=== PATIENT | female | born 1980 | race Caucasian/White ===

== ENCOUNTER → 2018-12-01 | Emergency (ER) | payer MEDICAID ==
[~2018-12-01] VITALS: Ht 167.6 cm; Wt 60.0 kg
[~2018-12-01] MED LIST: ACETAMINOPHEN 500 MG TAB PO STA; ALBU18HF INHALATION; ALBUTEROL 0.083% (NEB) 2.5 MG/3 ML AMP HHN STA; CETI10TA19 PO; CYCLOBENZAPRINE 10 MG TAB PO ONE; GUAI118L22 PO; IPRATROPIUM (NEB) 0.5 MG/2.5 ML AMP HHN ONE; KETOROLAC 60 MG INJ IM STA
[2018-12-01 14:45] VITALS: Ht 167.6 cm; Wt 60.0 kg
--- NOTE | 2018-12-01 18:11 | ERD ---
ER Documentation Chief Complaint Chief Complaint Complains of back pain x 3 days HPI History of Present Illness: 38-year-old female with no past medical history coming in today with complaint of upper back pain for 3 days. Patient is also reporting chills, fever, productive cough with green mucus, shortness of breath at night while laying. Patient denies any other associated symptoms. Patient denies chest pain, palpitations, dizziness, syncope, weakness. At home pharmacological/nonpharmacological treatment for symptoms: Denies social concerns; Denies recent foreign travel ROS All systems reviewed and are negative except as per history of present illness. Medications Home Meds Active Scripts Albuterol Sulfate* (Ventolin HFA*) 18 Gm Hfa.aer.ad, 2 PUFF INHALATION Q4H, #1 INHALER Prov:NNAMDI HARRIS NP 12/01/18 Cetirizine Hcl* (Cetirizine Hcl*) 10 Mg Tablet, 10 MG PO DAILY for allergies/runny nose/cough, #30 TAB Prov:NNAMDI HARRIS NP 12/01/18 Guaifenesin/Codeine Phosphate (CHERATUSSIN AC SYRUP) 118 Ml Liquid, 10 ML PO Q6H PRN for cough/congestion/phylm, #118 ML Prov:NNAMDI HARRIS NP 12/01/18 Allergies Allergies: Coded Allergies: No Known Allergy (Unverified , 12/01/18) PMhx/Soc History of Surgery: No Anesthesia Reaction: No Hx Neurological Disorder: No Hx Respiratory Disorders: No Hx Cardiac Disorders: No Hx Psychiatric Problems: No Hx Miscellaneous Medical Probl: No Hx Alcohol Use: Yes (sometimes) Hx Substance Use: No Hx Tobacco Use: No Smoking Status: Never smoker FmHx Family History: diabetes Physical Exam Vitals Vital Signs Date Temp Pulse Resp B/P (MAP) Pulse Ox O2 O2 Flow FiO2 Time Delivery Rate 12/01/18 98.1 99 20 125/70 98 Room Air 20:03 (88) 12/01/18 80 19 96 21 17:54 12/01/18 98.4 106 20 138/74 98 14:45 (95) Physical Exam Const: No acute distress Head: Atraumatic Eyes: Normal Conjunctiva ENT: Normal External Ears, Nose and Mouth. Neck: Full range of motion. No meningismus. Resp: Course breath sounds to auscultation bilaterally, shallow breathing. Cardio: Regular rate and rhythm, no murmurs Abd: Soft, non tender, non distended. Normal bowel sounds Skin: No petechiae or rashes Back: No midline or flank tenderness Ext: No cyanosis, or edema Neur: Awake and alert Psych: Normal Mood and Affect Results 24 hrs Laboratory Tests Test 12/01/18 17:41 12/01/18 17:44 Urine Color YELLOW Urine Clarity SLIGHTLY CLOUDY Urine pH 6.0 Urine Specific [place] 1.018 Urine Ketones 1+ mg/dL Urine Nitrite NEGATIVE mg/dL Urine Bilirubin NEGATIVE mg/dL Urine Urobilinogen NEGATIVE mg/dL Urine Leukocyte Esterase 1+ Ira/ul Urine Microscopic RBC 6 /HPF Urine Microscopic WBC 3 /HPF Urine Squamous Epithelial Cells FEW /HPF Urine Bacteria FEW /HPF Urine Hemoglobin NEGATIVE mg/dL Urine Glucose NEGATIVE mg/dL Urine Total Protein NEGATIVE mg/dl POC Beta HCG, Qualitative NEGATIVE Current Medications Medications Dose Sig/Gigi Start Time Status Last (Trade) Ordered Route PRN Stop Time Admin Dose Reason Admin Ketorolac 60 mg ONCE STAT 12/01/18 DC 12/01/18 Tromethamine IM 17:15 12/01/18 17:52 (Toradol) 17:19 Albuterol 5 mg ONCE STAT 12/01/18 DC 12/01/18 (Proventil HHN 17:15 12/01/18 17:53 0.083% (Neb)) 17:19 Ipratropium 0.5 mg ONCE ONCE 12/01/18 DC 12/01/18 [place] HHN 17:30 12/01/18 17:53 (Atrovent 17:31 0.02% (Neb)) 1,000 mg ONCE STAT 12/01/18 DC 12/01/18 Acetaminophen PO 17:18 12/01/18 17:49 (Tylenol 17:19 Tab) 10 mg ONCE ONCE 12/01/18 DC 12/01/18 Cyclobenzapri PO 17:30 12/01/18 17:49 ne HCl 17:31 (Flexeril) Procedures/MDM Urinalysis negative for infection. ED course includes a thorough examination and history. Medications: Cyclobenzaprine, acetaminophen, nebulizer treatments, ketorolac Imaging: Chest x-ray Labs: Urine Low suspicion for life-threatening medical emergency. Otherwise healthy patient presenting with constellation of symptoms likely representing uncomplicated upper respiratory infection as characterized by history, physical exam findings, lab findings, imaging findings. Urinalysis negative for infection. chest x-ray results revealing: IMPRESSION: Unremarkable chest. R Tess, No respiratory distress, otherwise relatively well appearing and nontoxic. Patient reassessment: Coarse breath sounds decreased after nebulizer treatments. Physician patient hemodynamically stable. Patient is afebrile. Patient educated on diagnoses, prescriptions, follow-up care, return precautions. Strict return precautions given for worsening condition; questions answered discharge. Disposition for discharge with followup in 2 days with PCP/clinic. Departure Diagnosis: Primary Impression: URI (upper respiratory infection) URI type: unspecified URI Qualified Codes: J06.9 - Acute upper respiratory infection, unspecified Condition: Stable NNAMDI HARRIS NP December 01, 2018 18:06
[2018-12-01 20:03] VITALS: BP 125/70; PULSE 99; RESP 20
== END | disposition home or self-care (01) ==
LOC: FTE 14:40
DX: J06.9 Acute upper respiratory infection, unspecified (principal)
CPT/HCPCS: 71046; 81001; 81025; 94664; 96372; J1885; Z7502; Z7610